=== PATIENT | male | born 1950 | race Caucasian/White ===

== ENCOUNTER → 2017-01-17 | Outpatient (CLI) | payer MEDICARE ==
--- NOTE | 2017-01-17 16:18 | RAD ---
EXAM DESCRIPTION: Knee,Right 2 or More Views CLINICAL HISTORY: PAIN COMPARISON: None. TECHNIQUE: 4 views FINDINGS: I see no bone joint or soft tissue abnormality. IMPRESSION: Normal right knee. Electronically signed by: Sree Leahy MD 01/17/2017 4:17 PM CDT
--- NOTE | 2017-01-17 16:19 | RAD ---
EXAM DESCRIPTION: Pelvis CLINICAL HISTORY: PAIN COMPARISON: None. TECHNIQUE: AP pelvis FINDINGS: I see no bone joint or soft tissue abnormality. IMPRESSION: Normal pelvis. Electronically signed by: Sree Leahy MD 01/17/2017 4:18 PM CDT
== END | disposition home or self-care (01) ==
LOC: RAD 08:10
PROVIDERS: ATTEND Orthopaedic Surgery
DX: M25.561 Pain in right knee (principal); M25.551 Pain in right hip

== ENCOUNTER → 2017-06-16 | Outpatient (CLI) | payer MEDICARE, OTHER | END | disposition home or self-care (01) | LOC: LAB.O 11:49 | PROVIDERS: ATTEND Internal Medicine Hematology & Oncology | DX: C20 Malignant neoplasm of rectum (principal) ==

== ENCOUNTER → 2018-04-10 | Outpatient (CLI) | payer MEDICARE, OTHER | LOC: GMAH 12:17 | PROVIDERS: ATTEND Family Medicine | DX: E29.1 Testicular hypofunction (principal) ==

== ENCOUNTER → 2018-09-04 | Outpatient (CLI) | payer MEDICARE, OTHER | LOC: GMAH 10:29 | PROVIDERS: ATTEND Family Medicine | DX: E78.2 Mixed hyperlipidemia (principal); R03.0 Elevated blood-pressure reading, without diagnosis of hypertension ==

== ENCOUNTER → 2018-10-29 | Outpatient (CLI) | payer MEDICARE, OTHER | LOC: GMAH 14:40 | PROVIDERS: ATTEND Family Medicine | DX: E29.1 Testicular hypofunction (principal) ==

== ENCOUNTER 2019-07-10 00:11 | Emergency (ER) | payer MEDICARE, BC ==
[2019-07-10] MEDS ORDERED: SODIUM CHLORIDE 0.9% (FLUSH) 10 ML SYG IV PRN (00:30)
[2019-07-10] MEDS ORDERED: KETOROLAC TROMETHAMINE INJ 30 MG/ML VIAL IV ONE (00:32)
--- NOTE | 2019-07-10 00:34 | ED.PDOC ---
History of Present Illness - General Chief Complaint: Chest Pain/ID Time Seen by Provider: 07/10/19 00:19 Source: patient Additional Information: 68yo M who presents for evaluation of chest pain onset this evening. The patient states he was laying in bed and woke feeling like he was obstructed and could not get his breath. He walked outside to get air and tried to force open his chest. This cause him to have a sharp sternal pain. The symptoms subsequently improved and the patient reports a residual dull chest discomfort, sharp with deep breathing. He denies recent illness. He has hx of high cholesterol and BP that are treated. Denies hx of CAD or heart problems. He does snore. No nausea or vomiting. No noted chest discomfort with exertion, states he is in overall good health. Non-smoker. no other reported issues. - History of Present Illness Allergies/Adverse Reactions: Allergies Morphine Allergy (Verified 07/10/19 00:45) Review of Systems - Review of Systems Constitutional: Denies: chills, fever EENTM: Denies: blurred vision, double vision, nose congestion Respiratory: States: short of breath. Denies: cough Cardiology: States: chest pain. Denies: edema, palpitations Musculoskeletal: Denies: back pain, muscle pain Skin: Denies: change in color, rash Neurological: Denies: headache, numbness, paresthesia, weakness Endocrine: Denies: excessive sweating, increased thirst, unexplained weight loss Hematologic/Lymphatic: Denies: anemia, easy bruising Family Medical History - Family History Father Family History: Unknown Living Status: Unknown Physical Exam - Physical Exam General Appearance: Alert, Comfortable, No apparent distress Eyes, Ears, Nose, Throat Exam: PERRL/EOMI, pharynx normal Neck: non-tender, supple Respiratory: chest non-tender, normal breath sounds, no respiratory distress Cardiovascular/Chest: normal peripheral pulses, regular rate, rhythm Gastrointestinal/Abdominal: non tender, soft Extremity: normal range of motion, non-tender, no pedal edema Neurologic: no motor/sensory deficits, alert, normal mood/affect, oriented x 3 Skin Exam: normal color, warm/dry Progress - Progress Progress: DDX: Strain, sprain, DALIA, ACS, pleuritic pain, fracture, effusion, infection, gastrointestinal problem, vascular problem, bronchospasm. 07/10/19 01:39 The patient reports improve discomfort with ED treatment. Now only has slight sharp sensation with deep breath. The patient's EKG is unremarkable, Trop neg, exam reassuring. HEART score is 3 placing him at low risk. We discussed repeat troponin, but the patient defers at this time. Results and pathways for follow up discussed. I recommended the patient follow up closely with his PCP for ongoing assessment. The patient and significant other are comfortable with this plan. We discussed expected course, as well as signs and symptoms that warrant immediate return. It was a pleasure to care for this patient today. - Results/Orders Results/Orders: Laboratory Results - last 24 hr 07/10/19 00:30 WBC 8.2 RBC 5.40 Hgb 16.9 Hct 50.9 MCV 94.3 H MCH 31.3 H MCHC 33.2 RDW 15.1 H Plt Count 252 MPV 7.2 L Absolute Neuts (auto) 5.40 Absolute Lymphs (auto) 2.00 Absolute Monos (auto) 0.60 Absolute Eos (auto) 0.10 Absolute Basos (auto) 0.00 Neutrophils % 65.7 Lymphocytes % 24.7 Monocytes % 7.8 Eosinophils % 1.3 Basophils % 0.5 PT 9.1 INR 0.91 PTT (SP) 24.6 Sodium 138 Potassium 3.8 Chloride 101 Carbon Dioxide 26 Anion Gap 14.8 BUN 8 Creatinine 0.84 BUN/Creatinine Ratio 9.5 L Random Glucose 89 Serum Osmolality 273.5 L Calcium 9.2 Magnesium 2.3 Creatine Kinase 114 CK-MB (CK-2) 3.1 CK-MB (CK-2) % Not Reportable Troponin I < 0.02 - EKG/XRAY/CT Comments: EKG 00:16 Sinus 74. Nl axis, nl intervals, no ST elevation or depression. Xray Comments: CXR: No acute cardiopulm findings. See official read. Departure - Departure Clinical Impression: Chest pain Qualifiers: Chest pain type: unspecified Qualified Code(s): R07.9 - Chest pain, unspecified Time of Disposition: 01:28 Disposition: Discharge to Home or Self Care Condition: Good Departure Forms: ED Discharge - Pt. Copy, Patient Portal Self Enrollment Instructions: DI for Chest Pain Diet: low fat, low cholesterol Referrals: Glen Nicholson MD [Primary Care Provider] - 1-2 Weeks Comments: Brandyn Rodas, Physician #[id number]
--- NOTE | 2019-07-10 01:15 | RAD ---
EXAM: XR Chest, 1 View CLINICAL HISTORY: The patient is 68 years old and is Male; Chest pain TECHNIQUE: Frontal view of the chest. COMPARISON: No relevant prior studies available. FINDINGS: LUNGS: Unremarkable. No consolidation. PLEURAL SPACE: Unremarkable. No pneumothorax. HEART: Unremarkable. No cardiomegaly. MEDIASTINUM: Unremarkable. BONES/JOINTS: Unremarkable. IMPRESSION: No acute cardiopulmonary process. Electronically signed by: Rita Hollingsworth MD 07/10/2019 1:13 AM CDT
[2019-07-10 01:38] VITALS: BP 154/85; TEMP 97; O2SAT 98
== END 2019-07-10 01:38 | disposition home or self-care (01) ==
LOC: ER 00:11
DX: R07.9 Chest pain, unspecified (principal); R06.02 Shortness of breath; Z88.5 Allergy status to narcotic agent
CPT/HCPCS: 71045; 80048; 82550; 82553; 84484; 85025; 85610; 85730; 93005; J1885

== ENCOUNTER → 2019-11-25 | Outpatient (CLI) | payer MEDICARE, BC | LOC: GMA MATASK 10:34 | PROVIDERS: ATTEND Family Medicine | DX: I10 Essential (primary) hypertension (principal); Z12.5 Encounter for screening for malignant neoplasm of prostate; E29.1 Testicular hypofunction | CPT/HCPCS: 84403; 84443; 84550; G0103 ==

== ENCOUNTER 2020-02-07 13:08 | Emergency (ER) | payer MEDICARE ==
[2020-02-07] MEDS ORDERED: SODIUM CHLORIDE 0.9% (FLUSH) 10 ML SYG IV PRN (13:16)
--- NOTE | 2020-02-07 13:17 | ED.PDOC ---
History of Present Illness - General Time Seen by Provider: 02/07/20 13:16 Source: patient - History of Present Illness Initial Comments: 69 yo male with PMH of HLD who presents with cc of shortness of breath. Onset 3 days ago, worsened since 3 am today. Reports constant 6/10 severity of dyspnea, worse at night with sitting and lying down but thierry worse when lying flat. Seems to actually improve with standing and activity. No meds taken for relief. No hx of similar issues. Reports minimal assoc'd chest tightness. Denies any cough, wheezing, fevers, abd pain, n/v/d, leg swelling, body aches, sore throat. PCP is Dr. Nicholson. States he used to take BP meds but they were discontinued because his BP was well-controlled. Only takes cholesterol medication currently. Denies any hx of smoking. Allergies/Adverse Reactions: Allergies Morphine Allergy (Verified 02/07/20 13:35) Home Medications: Ambulatory Orders Furosemide [Lasix] 40 mg PO DAILY 14 Days #14 tab 02/07/20 Potassium Chloride [K-Tab] 20 meq PO BID 14 Days #28 tab 02/07/20 Review of Systems - Review of Systems Review of Systems: 02/07/20 13:42 as per HPI All other Systems: Reviewed and Negative Past Medical History (General) - Patient Medical History Hx Congestive Heart Failure: No Hx Hypertension: Yes Hx Cancer: Yes - colorectal - Vaccination History Hx Tetanus, Diphtheria Vaccination: No Hx Influenza Vaccination: No Hx Pneumococcal Vaccination: No - Social History Hx Tobacco Use: No Hx Alcohol Use: Yes Family Medical History - Family History Father Family History: Unknown Living Status: Unknown Physical Exam - Physical Exam General Appearance: Alert, Comfortable, No apparent distress Eye Exam: bilateral normal Ears, Nose, Throat: hearing grossly normal, normal ENT inspection, normal pharynx Neck: non-tender, full range of motion, supple, normal inspection Respiratory: chest non-tender, lungs clear, normal breath sounds, no respiratory distress, no accessory muscle use Cardiovascular/Chest: normal peripheral pulses, regular rate, rhythm, no edema, no gallop, no murmur, JVD - to middle of neck lying flat, 2-3 cms lying at 45 degrees Peripheral Pulses: radial,right: 2+, radial,left: 2+ Gastrointestinal/Abdominal: non tender, soft, no organomegaly Back Exam: normal inspection, no CVA tenderness Extremity: normal range of motion, non-tender, normal inspection, no pedal edema, no calf tenderness, normal capillary refill 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 BP remains elevated 140s-160s/80s-90s. Remainder of vitals stable. -Labwork largely unremarkable. Trop <0.02, BNP 43, WBC 9k w/o left shift or bands. See CXR read below - question cardiomegaly and some vascular congestion. -Discussed with pt & his I feel his symptoms are likely attributable to underlying congestive heart failure, of which we may be seeing some early signs and causing acute exacerbation. Will plan to repeat EKG & troponin and then discuss discharge planning. 02/07/20 16:03 -Repeat EKG & trop unchanged. -Will plan to give Lasix 20 mg IV & KCl 40 mEq PO in ED. Then discharge home with Lasix 40 mg daily and KCl 20 mEq PO BID, next dose tomorrow morning. Advised to weigh daily, low Na diet, 2 L fluid restrictions, avoid vigorous activity until cleared by . F/u with PCP in next 2-3 days. Strict ED return warnings issued. -Given afebrile, w/o cough & fever, and normal WBC, highly doubtful of PNA. Suspect CXR abnormalities from pulmonary edema and not infection. Hold Abx for now. -I discussed with his PCP, Dr. Nicholson, who agrees with assessment and plan. Will arrange for close outpatient f/u and further management. Dinesh Marquez MD Billing #[id number] 02/07/20 13:16 IV Care:Saline Lock per Protoc QSHIFT Telemetry .ONCE Sodium Chloride 0.9% (Flush) [Saline Flush Syringe] 10 ml IV PRN PRN 02/07/20 13:30 EKG STAT 02/07/20 14:57 EKG Assessment ONCE 02/07/20 15:00 EKG STAT 02/08/20 09:00 Pulse Ox Daily Laboratory Results - last 24 hr 02/07/20 02/07/20 02/07/20 13:30 13:30 13:30 WBC 9.9 RBC 5.25 Hgb 16.4 Hct 48.7 MCV 92.9 MCH 31.2 H MCHC 33.6 RDW 15.0 H Plt Count 263 MPV 6.8 L Absolute Neuts (auto) 7.30 H Absolute Lymphs (auto) 1.80 Absolute Monos (auto) 0.70 Absolute Eos (auto) 0.00 Absolute Basos (auto) 0.10 Neutrophils % 73.8 Lymphocytes % 18.0 L Monocytes % 7.1 Eosinophils % 0.4 L Basophils % 0.7 D-Dimer, Quantitative < 131 L Sodium 136 Potassium 3.4 L Chloride 99 L Carbon Dioxide 28 Anion Gap 12.4 BUN 17 Creatinine 0.81 BUN/Creatinine Ratio 21.0 H Random Glucose 88 Serum Osmolality 272.9 L Calcium 9.0 Troponin I B-Natriuretic Peptide 43.8 02/07/20 02/07/20 13:30 15:13 WBC RBC Hgb Hct MCV MCH MCHC RDW Plt Count MPV Absolute Neuts (auto) Absolute Lymphs (auto) Absolute Monos (auto) Absolute Eos (auto) Absolute Basos (auto) Neutrophils % Lymphocytes % Monocytes % Eosinophils % Basophils % D-Dimer, Quantitative Sodium Potassium Chloride Carbon Dioxide Anion Gap BUN Creatinine BUN/Creatinine Ratio Random Glucose Serum Osmolality Calcium Troponin I < 0.02 < 0.02 B-Natriuretic Peptide - EKG/XRAY/CT EKG: Sinus - NSR, HR 75, no ST elevs or q waves, axis & intervals normal, unchanged from 07/10/19 EKG XRAY: chest - per my read, borderline cardiomegaly noted with BL perihilar vascular congestion suspicious for pulmonary edema vs infiltrate Departure - Departure Clinical Impression: Congestive heart failure Qualifiers: Heart failure type: unspecified Heart failure chronicity: acute Qualified Code(s): I50.9 - Heart failure, unspecified Time of Disposition: 16:00 Disposition: Discharge to Home or Self Care Condition: Fair Instructions: Heart Failure, Adult (DC) Diet: low salt diet Activity: other - no strenuous physical activity or prolonged exposure to heat until cleared by PCP Referrals: Glen Nicholson MD [Primary Care Provider] - 1-5 Days Prescriptions: Furosemide [Lasix] 40 mg PO DAILY 14 Days #14 tab Potassium Chloride [K-Tab] 20 meq PO BID 14 Days #28 tab Home Medications: Ambulatory Orders Furosemide [Lasix] 40 mg PO DAILY 14 Days #14 tab 02/07/20 Potassium Chloride [K-Tab] 20 meq PO BID 14 Days #28 tab 02/07/20 Additional Instructions: Take the Lasix and potassium as directed. Eat a low sodium diet and limit fluid intake to no more than 2 Liters of fluid per day. Weigh yourself daily each morning and record for your PCP to review at the next visit. You may need to sleep with the head of your bed elevated until your symptoms are resolved. Return to the ED if you develop worsening shortness of breath, chest pain, fever >100 F, productive cough, or any other concerning symptoms.
--- NOTE | 2020-02-07 13:49 | RAD ---
EXAM DESCRIPTION: Chest,1 View CLINICAL HISTORY: 69 years Male, dyspnea COMPARISON: 07/10/2019 Findings: One view(s)/radiograph(s) Borderline cardiomegaly. Slight pulmonary vascular congestion. No pneumothorax. No pleural effusion. No focal consolidation. Bilateral perihilar interstitial airspace disease. No acute osseous abnormality. IMPRESSION: Bilateral perihilar interstitial airspace disease; pulmonary edema and/or pneumonia. Borderline cardiomegaly with slight pulmonary vascular congestion. Electronically signed by: Miky Cabezas MD 02/07/2020 1:47 PM CDT
[2020-02-07] MEDS ORDERED: POTASSIUM CHLORIDE 20 MEQ TAB PO ONE (16:00)
[2020-02-07] MEDS ORDERED: FUROSEMIDE INJ 20 MG/2 ML VIAL IV ONE (16:00)
[2020-02-07 16:23] VITALS: O2SAT 95
[2020-02-07 16:24] VITALS: BP 155/82; TEMP 97.8
== END 2020-02-07 16:20 | disposition home or self-care (01) ==
LOC: ER 13:08
DX: I50.9 Heart failure, unspecified (principal); R06.02 Shortness of breath; I10 Essential (primary) hypertension; E78.5 Hyperlipidemia, unspecified
CPT/HCPCS: 36415; 71045; 80048; 83880; 84484; 85025; 85379; 93005; 94760; J1940

== ENCOUNTER → 2020-03-16 | Outpatient (CLI) | payer MEDICARE | LOC: ECHO 12:57 | PROVIDERS: ATTEND Family Medicine | DX: I50.30 Unspecified diastolic (congestive) heart failure (principal); I34.0 Nonrheumatic mitral (valve) insufficiency; I51.7 Cardiomegaly ==

== ENCOUNTER → 2020-06-20 | Outpatient (CLI) | payer MEDICARE | LOC: GMA MATASK 14:53 | PROVIDERS: ATTEND Family Medicine | DX: M25.50 Pain in unspecified joint (principal) ==

== ENCOUNTER 2020-09-06 11:39 | Outpatient (CLI) | payer MEDICARE | END 2020-09-07 11:30 | disposition home or self-care (01) | LOC: INFRM 11:39 | PROVIDERS: ATTEND Family Medicine | DX: U07.1 COVID-19 (principal); I10 Essential (primary) hypertension; I50.9 Heart failure, unspecified; Z23 Encounter for immunization ==